=== PATIENT | female | born 1980 | race Caucasian/White ===

== ENCOUNTER 2022-12-14 10:47 | Emergency (ER) | payer OTHER ==
[~2022-12-14] VITALS: Ht 162 cm; Wt 62.0 kg
[~2022-12-14 10:47] MED LIST: ACHD5005 PO; ACHYD1T PO; CLIN-62 PO; DCS100C PO; DOXY100C2 PO; IBP800T PO; METR500T PO; NITR-65 PO; PHEN200T27 PO; SULF1TAB35 PO; [UNRECOGNIZED DRUG - OTHER]
--- NOTE | 2022-12-14 11:08 | ED Back Pain ---
General Chief Complaint: Back Problems Stated Complaint: ABD PAIN | KIDNEY STONE Nursing Triage Note: PT AMB TO [facility] 5 FROM [facility]. PT HAS BLOOD IN URINE, Source of Information: Patient Exam Limitations: No Limitations History of Present Illness Date Seen by Provider: Dec 14, 2022 Time Seen by Provider: 10:49 Initial Comments 42-year-old female with past medical history of kidney stones coming in due to left flank pain. Started this morning, sharp, intermittent, feels like her prior kidney stone. She typically gets a kidney stone roughly every 10 years. She states she typically passes them after 2 to 3 days, and has never required any stenting. Denies any gross hematuria, does have some urinary frequency, but no dysuria. Also denies any fever. Did have some nausea when the pain was severe, but denies any vomiting. At [facility] urgent care, she had a urinalysis with blood in it, leukocyte Estrace, and some bacteria. They gave her 1 L of IV fluids and 60 mg of IM Toradol. Allergies and Home Medications Allergies Coded Allergies: NKANo Known Allergies (Verified Allergy, Mild, 04/27/22) doxycycline (Verified Allergy, Unknown, 12/14/22) Uncoded Allergies: SULFA (Allergy, Unknown, 12/14/22) Patient Home Medication List Home Medication List Reviewed: Yes Clindamycin Hcl (Cleocin Cap) 150 Mg Cap, 2 TAB PO TID, (Reported) Entered as Reported by: LATRICE SHER on 12/18/11 1347 Ibuprofen (Motrin) 800 Mg Tab, 800 MG PO Q6HR, (Reported) Entered as Reported by: LATRICE SHER on 12/08/11 0904 Sulfamethoxazole/Trimethoprim (Bactrim DS) 1 Each Tablet, 1 TAB PO BID, (Reported) Entered as Reported by: LATRICE SHER on 12/18/11 1347 Review of Systems Constitutional: No fever EENTM: no symptoms reported Respiratory: no symptoms reported Cardiovascular: no symptoms reported Gastrointestinal: no symptoms reported Genitourinary: see HPI Musculoskeletal: no symptoms reported Skin: no symptoms reported Psychiatric/Neurological: No Symptoms Reported All Other Systems Reviewed Negative Unless Noted: Yes Past Nfhdaut-Xdljzw-Ihyfrx Hx Patient Social History Tobacco Use?: No Substance use?: No Alcohol Use?: Yes Alcohol Frequency: Once in a while Pt feels they are or have been: No Immunizations Up To Date First/Initial COVID19 Vaccinat: YES Past Medical History Surgery/Hospitalization HX: PARTIAL HYST Surgeries: Yes Hysterectomy Reproductive Disorders: Yes (CPP, UTERO-VAGINAL PROLAPSE) Physical Exam Vital Signs Vital Signs - First Documented 12/14/22 10:55 Temp 36.6 Pulse 80 Resp 16 B/P (MAP) 146/88 (107) Pulse Ox 100 Capillary Refill : Less Than 3 Seconds Height, Weight, BMI Height: '" Weight: lbs. oz. kg; 23.00 BMI Method:Stated General Appearance: No Apparent Distress, WD/WN HEENT: PERRL/EOMI, Normal ENT Inspection, Pharynx Normal Neck: Full Range of Motion, Normal Inspection, Non Tender, Supple Cardiovascular: Regular Rate, Rhythm, No Edema, Normal Peripheral Pulses Respiratory: Chest Non Tender, Lungs Clear, Normal Breath Sounds, No Accessory Muscle Use, No Respiratory Distress Gastrointestinal: Normal Bowel Sounds, Non Tender, Soft; No Distended, No Guarding Back: Normal Inspection, No Vertebral Tenderness, CVA Tenderness (L); No CVA Tenderness (R) Extremity: Normal Capillary Refill, Normal Inspection, Normal Range of Motion, Non Tender, No Calf Tenderness, No Pedal Edema Neurologic/Psychiatric: Alert, No Motor/Sensory Deficits, Normal Mood/Affect Skin: Normal Color, Warm/Dry Progress/Results/Core Measures Results/Orders Lab Results Laboratory Tests Test 12/14/22 11:05 Range/Units White Blood Count 6.2 4.3-11.0 10^3/uL Red Blood Count 4.45 3.80-5.11 10^6/uL Hemoglobin 13.6 11.5-16.0 g/dL Hematocrit 40 35-52 % Mean Corpuscular Volume 90 80-99 fL Mean Corpuscular Hemoglobin 31 25-34 pg Mean Corpuscular Hemoglobin Concent 34 32-36 g/dL Red Cell Distribution Width 12.2 10.0-14.5 % Platelet Count 252 130-400 10^3/uL Mean Platelet Volume 8.9 L 9.0-12.2 fL Immature Granulocyte % (Auto) 0 % Neutrophils (%) (Auto) 56 42-75 % Lymphocytes (%) (Auto) 35 12-44 % Monocytes (%) (Auto) 7 0-12 % Eosinophils (%) (Auto) 1 0-10 % Basophils (%) (Auto) 1 0-10 % Neutrophils # (Auto) 3.5 1.8-7.8 10^3/uL Lymphocytes # (Auto) 2.1 1.0-4.0 10^3/uL Monocytes # (Auto) 0.4 0.0-1.0 10^3/uL Eosinophils # (Auto) 0.1 0.0-0.3 10^3/uL Basophils # (Auto) 0.0 0.0-0.1 10^3/uL Immature Granulocyte # (Auto) 0.0 0.0-0.1 10^3/uL Sodium Level 141 135-145 MMOL/L Potassium Level 3.8 3.6-5.0 MMOL/L Chloride Level 106 98-107 MMOL/L Carbon Dioxide Level 26 21-32 MMOL/L Anion Gap 9 5-14 MMOL/L Blood Urea Nitrogen 11 7-18 MG/DL Creatinine 0.89 0.60-1.30 MG/DL Estimat Glomerular Filtration Rate 83 BUN/Creatinine Ratio 12 Glucose Level 98 70-105 MG/DL Calcium Level 9.3 8.5-10.1 MG/DL My Orders Orders - ZOFIA CABA MD Ct Abd/Pelvis Wo(Kidney Stone) (12/14/22 11:04) Ua Culture If Indicated (12/14/22 11:04) Hydrocodone/Apap 5/325 Tablet (Lortab 5 (12/14/22 11:15) Ondansetron Injection (Zofran Injectio (12/14/22 11:15) Basic Metabolic Panel (12/14/22 11:15) Cbc With Automated Diff (12/14/22 11:15) Medications Given in ED Current Medications Medications Dose Ordered Sig/Eulalia Route Start Time Stop Time Status Last Admin Dose Admin Acetaminophen/ Hydrocodone Bitart 1 ea ONCE ONCE PO 12/14/22 11:15 12/14/22 11:16 DC 12/14/22 11:16 1 EA Ondansetron HCl 4 mg ONCE ONCE IVP 12/14/22 11:15 12/14/22 11:16 DC 12/14/22 11:16 4 MG Vital Signs/I&O 12/14/22 10:55 Temp 36.6 Pulse 80 Resp 16 B/P (MAP) 146/88 (107) Pulse Ox 100 Blood Pressure Mean: 107 Progress Progress Note : Progress Note 42-year-old female coming in due to left flank pain in the setting of known prior kidney stones. ABCs were intact and vitals were stable on presentation. We did take report from [facility] urgent care from the nurse practitioner. I have also personally reviewed their note for the day, and they did give 60 mg of IM Toradol, 1 L of IV fluids, and they did a urinalysis showing blood, leukocyte esterase, negative nitrites. An IV was placed by them and she came with this in place. She will be given oral hydrocodone here as well as IV Zofran. CT abdomen pelvis without contrast ordered. Repeat urinalysis ordered here so we can get a culture. WBC is normal, creatinine normal, and normal hemoglobin. CT on my interpretation with hydronephrosis on the left with a small distal ureteral lithiasis. It is 2 to 3 mm per radiology read. We will send a urine, and if culture comes back positive, they can call in a prescription. I will send a prescription for pain medicines otherwise. I believe she stable for discharge with outpatient follow-up. She was sent home with strict return precautions. Diagnostic Imaging Diagonstic Imaging: CT (abd/pelvis) Comments NAME: MARY DANIEL [facility] REC#: [id number] PT STATUS: REG ER : 1980 PHYSICIAN: ZOFIA CABA MD ADMIT DATE: 12/14/22/ER Draft Date of Exam:12/14/22 CT ABD/PELVIS WO(KIDNEY STONE) PROCEDURE: CT urinary tract, rule out kidney stone. TECHNIQUE: Multiple contiguous axial images were obtained through the abdomen and pelvis without the use of intravenous contrast. Auto Exposure Controls were utilized during the CT exam to meet ALARA standards for radiation dose reduction. INDICATION: Left flank pain and hematuria. No prior studies are available for comparison. FINDINGS: The lung bases are clear. The liver and gallbladder are unremarkable. Pancreas and spleen are unremarkable. No adrenal mass is identified. Right kidney is unremarkable. Left kidney and left ureter appear to be somewhat dilated. The dilated left ureter is traced into the pelvis. There are multiple calcific densities in the pelvis, most of which likely represent phleboliths. However, there are some in the distribution of the distal left ureter as well as a small approximately 2 to 3 mm calculus near the UVJ. A distal ureteral calculus is suspected particularly in light of hydroureteronephrosis. Aorta is nonaneurysmal. Bowel loops are normal caliber. There is moderate stool in the colon. There is trace free fluid in the pelvis. Bladder is unremarkable. IMPRESSION: Moderate left-sided hydroureteronephrosis. A distal left ureteral calculus is suspected, likely at the UVJ 2 to 3 mm in size. No other significant abnormality is detected. Dictated on workstation # [id number] Dict: 12/14/22 1237 Trans: 12/14/22 1242 [id number] Interpreted by: JUAN KYLE MD Electronically signed by: Departure Impression Primary Impression: Ureterolithiasis Disposition: HOME, SELF-CARE Condition: Stable Departure-Patient Inst. Decision time for Depature: 13:00 Referrals: SHAY CALVILLO MD (PCP/Family) Primary Care Physician Patient Instructions: Kidney Stone, Adult ED Add. Discharge Instructions: You do have a small 2 to 3 mm kidney stone on the left. This has a very high chance of passing. If it does not pass and you have continued pain after the next 1 to 2 weeks, then we recommend following up with a urologist of your choosing. It may be a good idea to schedule an appointment as soon as possible, sometimes their scheduling is further out. You can always cancel the appointment if you get better. Pain and nausea medicines were sent to your pharmacy. If you develop any fever or things become much worse, then we would want you to be evaluated by doctor sooner. Scripts Hydrocodone/Acetaminophen (Hydrocodone-Acetamin 5-325 mg) 5 Mg-325 Mg Tablet 1 TAB PO Q6H PRN for PAIN-MODERATE TO SEVERE for 3 Days, #12 TAB Prov: ZOFIA CABA MD 12/14/22 Ketorolac Tromethamine (Ketorolac Tromethamine) 10 Mg Tablet 10 MG PO Q8H PRN for PAIN-MILD TO MODERATE for 3 Days, #9 TAB Prov: ZOFIA CABA MD 12/14/22 Ondansetron (Ondansetron Odt) 4 Mg Tab.rapdis 4 MG SL Q6H PRN for NAUSEA/VOMITING for 5 Days, #20 TAB Prov: ZOFIA CABA MD 12/14/22 Tamsulosin HCl (Flomax) 0.4 Mg Cap 0.4 MG PO DAILY for 30 Days, #30 CAP Prov: ZOFIA CABA MD 12/14/22 Work/School Note: Work Release Form Date Seen in the Emergency Department: Dec 14, 2022 Return to Work: Dec 16, 2022 Restrictions: No Restrictions ZOFIA CABA MD Dec 14, 2022 11:08
[2022-12-14] MEDS ORDERED: ONDANSETRON 4 MG/2 ML (SDV) Z0FRAN IVP ONE (11:15)
[2022-12-14] MEDS ORDERED: HYDROcodone/APAP 5 MG/325 MG (LORTAB) TAB PO ONE (11:15)
[2022-12-14 11:24] LABS: POTASSIUM 3.8 MMOL/L (3.6-5.0)
[2022-12-14 11:25] LABS: BASOPHILS % (AUTO) 1 % (0-10); CALCIUM 9.3 MG/DL (8.5-10.1); EOSINOPHILS # (AUTO) 0.1 10^3/uL (0.0-0.3); EOSINOPHILS % (AUTO) 1 % (0-10); HEMATOCRIT 40 % (35-52); HEMOGLOBIN 13.6 g/dL (11.5-16.0); LYMPHOCYTES # (AUTO) 2.1 10^3/uL (1.0-4.0); LYMPHOCYTES % (AUTO) 35 % (12-44); MEAN CORPUSCULAR HEMOGLOBIN 31 pg (25-34); MEAN CORPUSCULAR HGB CONC 34 g/dL (32-36); MEAN CORPUSCULAR VOLUME 90 fL (80-99); MEAN PLATELET VOLUME 8.9 fL (9.0-12.2); MONOCYTES # (AUTO) 0.4 10^3/uL (0.0-1.0); MONOCYTES % (AUTO) 7 % (0-12); NEUTROPHILS # (AUTO) 3.5 10^3/uL (1.8-7.8); NEUTROPHILS % (AUTO) 56 % (42-75); PLATELET COUNT 252 10^3/uL (130-400); WHITE BLOOD COUNT 6.2 10^3/uL (4.3-11.0)
[2022-12-14 11:30] LABS: CREATININE SERUM 0.89 MG/DL (0.60-1.30)
--- NOTE | 2022-12-14 12:42 | Diagnostic Imaging Report ---
PROCEDURE: CT urinary tract, rule out kidney stone. TECHNIQUE: Multiple contiguous axial images were obtained through the abdomen and pelvis without the use of intravenous contrast. Auto Exposure Controls were utilized during the CT exam to meet ALARA standards for radiation dose reduction. INDICATION: Left flank pain and hematuria. No prior studies are available for comparison. FINDINGS: The lung bases are clear. The liver and gallbladder are unremarkable. Pancreas and spleen are unremarkable. No adrenal mass is identified. Right kidney is unremarkable. Left kidney and left ureter appear to be somewhat dilated. The dilated left ureter is traced into the pelvis. There are multiple calcific densities in the pelvis, most of which likely represent phleboliths. However, there are some in the distribution of the distal left ureter as well as a small approximately 2 to 3 mm calculus near the UVJ. A distal ureteral calculus is suspected particularly in light of hydroureteronephrosis. Aorta is nonaneurysmal. Bowel loops are normal caliber. There is moderate stool in the colon. There is trace free fluid in the pelvis. Bladder is unremarkable. IMPRESSION: Moderate left-sided hydroureteronephrosis. A distal left ureteral calculus is suspected, likely at the UVJ 2 to 3 mm in size. No other significant abnormality is detected. Dictated by: Dictated on workstation # [id number]
[2022-12-14] MEDS ORDERED: KETO10TA PO (12:50)
[2022-12-14] MEDS ORDERED: ONDA4TAB11 SL (12:50)
[2022-12-14] MEDS ORDERED: TMSL.4C PO (12:50)
[2022-12-14] MEDS ORDERED: ACHD5005 PO (12:50)
[2022-12-14 12:53] LABS: BILIRUBIN,URINE NEGATIVE (NEGATIVE); CLARITY,URINE SL CLOUDY; COLOR,URINE YELLOW; GLUCOSE, URINE (UA) NEGATIVE (NEGATIVE); KETONES,URINE NEGATIVE (NEGATIVE); LEUKOCYTE ESTERASE ,URINE NEGATIVE (NEGATIVE); NITRITE,URINE NEGATIVE (NEGATIVE); PROTEIN,URINE NEGATIVE (NEGATIVE)
[2022-12-14 12:57] VITALS: BP 146/88
[2022-12-14 13:00] LABS: AMORPHOUS SEDIMENT,UR FEW AMOR URATES /LPF; BACTERIA,URINE TRACE /HPF; SQUAMOUS EPITHELIAL CELL,UR >50 /HPF; WBC,URINE 0-2 /HPF
== END 2022-12-14 12:56 | disposition home or self-care (01) ==
LOC: EDUNIT# 10:47 → ER 10:50
DX: N13.2 Hydronephrosis with renal and ureteral calculous obstruction (principal); Z88.6 Allergy status to analgesic agent; Z28.311 Partially vaccinated for COVID-19
CPT/HCPCS: 36415; 74176; 80048; 81000; 85025

== ENCOUNTER 2023-01-24 05:36 | Outpatient (CLI) | payer OTHER ==
[~2023-01-24] VITALS: Ht 162 cm; Wt 59.0 kg
[~2023-01-24 05:36] MED LIST changes: +KETO10TA PO; +ONDA4TAB11 SL; +TMSL.4C PO
[2023-01-25] MEDS ORDERED: SUCR1TAB36 PO (14:26)
[2023-01-25] MEDS ORDERED: DIPH-757 PO (14:26)
[2023-01-25] MEDS ORDERED: OMEP40CA6 PO (14:26)
[2023-01-25] MEDS ORDERED: DOCU100T7 PO (14:30)
== END 2023-01-25 14:38 | disposition home or self-care (01) ==
LOC: PREOP 05:36
PROVIDERS: ATTEND Surgery
DX: Z01.818 Encounter for other preprocedural examination (principal)